=== PATIENT | female | born 1975 | race Caucasian/White ===

== ENCOUNTER 2023-05-27 19:18 | Emergency (ER) | payer BC, SELFPAY ==
[2023-05-27 19:19] VITALS: BMI 28.4
[2023-05-27 19:20] VITALS: BP 149/113
--- NOTE | 2023-05-27 19:53 | ED.GENMED ---
History of Present Illness
General
Chief Complaint: Musculo-Skeletal Complaint
Time Seen by Provider: 05/27/23 19:41
Travel History
Have you had any contact with someone who has COVID-19?: No
Do you have any symptoms of coronavirus? Fever > 100 degrees, chills, cough, shortness of breath, sore throat, loss of taste or smell, muscle aches, or headache?: No
History of Present Illness
History of Present Illness:
HPI: About an hour ago, the patient was picking up something heavy and felt a pop. She does not have much pain but was concerned of hardware in her back that was placed a few years ago related to scoliosis. She has no back pain 'red flags'.
EXAM:
GENERAL: Well appearing in no distress
HEENT: Moist oral mucosa
BACK: There is no significant midline tenderness and there is surgical scar noted in the midline of the T and L-spine
NEUROLOGIC: Excellent strength all extremities, no coordination deficits
PSYCHIATRIC: Appropriate mental status, normal insight and judgement
EXTREMITIES: Nontender, no edema, moves all extremities equally
SKIN: No rash, no lesions
TIME OF INITIAL ENCOUNTER: 7:50 PM
NUMBER AND COMPLEXITY OF PROBLEMS ADDRESSED AT THE ENCOUNTER
� Chronic conditions affecting care: Hardware related to scoliosis
� Acute Exacerbation and/or Progression of Chronic Illness: This is an acute problem
� Differential Diagnosis includes: Hardware malfunction, acute fracture unlikely, herniated disc
AMOUNT AND/OR COMPLEXITY OF DATA TO BE REVIEWED AND ANALYZED
� I performed an independent evaluation of and my interpretation is:
EKG:
CT:
X-rays: Hardware noted with no acute abnormality
Laboratory Studies:
Other:
� Review of other/old records: I reviewed records�patient had exam under anesthesia of the anal region in 2022
� Clinical information was obtained by an independent historian: Spoke with daughter at bedside
� Prescriptions/Medications Considered but not given:
� Further testing considered but not performed:
RISK OF COMPLICATIONS AND/OR MORBIDITY OR MORTALITY OF PATIENT MANAGEMENT
� Social determinants of health affecting care: Lives at home
� Discussion with other providers:
� Escalation of care including admission/observation vs risk of discharge considered: Patient declines analgesia. She is well-appearing. She is concerned of the hardware�will obtain plain film imaging. She has no back pain red
flags. I reassessed patient at 10:10 PM�there have been no further issues.
Past History
Past History
ED Past Medical History: HTN
ED Past Surgical History: Orthopedic
Social History
Tobacco: Non-smoker
Alcohol: Occasional
Drug: None
Phy Exam
Physical Exam
Physical Exam:
See HPI
Course
Orders/Labs/Results
Orders:
Orders
05/27/23 19:52
CR Lumbar Spine Comp Min 4 Vw* Urgent
Comment:
Reason For Exam: felt pop has hardware
CR Thoracic Spine 3 Views Urgent
Reason For Exam: felt pop has hardware
Vital Signs
Initial and Last Documented VS:
Initial Vital Signs
Temp Pulse Resp BP Pulse Ox
97.4 F 105 19 149/113 100
05/27/23 19:20 05/27/23 19:20 05/27/23 19:20 05/27/23 19:20 05/27/23 19:20
Last Documented Vital Signs
Temp Pulse Resp BP Pulse Ox
97.4 F 105 19 149/113 100
05/27/23 19:20 05/27/23 19:20 05/27/23 19:20 05/27/23 19:20 05/27/23 19:20
*Critical Care Note
Total Time (30-74mins, 75-104mins- exclusive of procedures): Not Applicable
ED Attending Note
-
Portions of this chart may have been created with voice recognition software.� Occasional wrong word or��sound alike� substitutions may have occurred due to the inherent limitations of voice recognition software.
Discharge Plan
Departure
Prescriptions:
No Action
lisinopril 20 mg Tablet
20 mg PO DAILY
docusate sodium [Colace] 100 mg Capsule
100 mg PO DAILY
cholecalciferol (vitamin D3) [Vitamin D3] 50 mcg (2,000 unit) Tablet
50 mcg PO DAILY
Lidocaine/Nifedipine
1 dose topical PRN PRN (Reason: pain)
oxycodone-acetaminophen 2.5-300 mg Tablet
1 - 2 tab PO Q6H PRN (Reason: pain)
Referrals:
Eden Isabel MD [Family Provider] -
Interventions
Interventions:
*Risk Screen - Suicide Last Done: 05/27/23 19:20
*General Assessment Last Done: 05/27/23 19:20
*Neglect/Abuse Screening Last Done: 05/27/23 19:20
ED- Fall Risk Assessment Last Done: 05/27/23 19:47
*ED COVID-19 Vaccine History Last Done: 05/27/23 19:20
ED-Musculoskeletal Assessment Last Done: 05/27/23 19:46
Discharge Date and Time
Print Language: CHADIAN
== END 2023-05-27 22:26 | disposition home or self-care (01) ==
LOC: EMR 19:18
PROVIDERS: EMERGENCY PHYSICIAN Emergency Medicine; FAMILY PHYSICIAN Internal Medicine
DX: M54.9 Dorsalgia, unspecified (principal); I10 Essential (primary) hypertension
CPT/HCPCS: 99283; 72072; 72110

== ENCOUNTER → 2024-02-09 06:21 | Day surgery (SDC) | payer BC, SELFPAY | LOC: GI 06:21 | PROVIDERS: ATTENDING PHYSICIAN Surgery | DX: Z12.11 Encounter for screening for malignant neoplasm of colon (principal); D12.0 Benign neoplasm of cecum; D12.2 Benign neoplasm of ascending colon; K63.5 Polyp of colon; K56.2 Volvulus; R19.5 Other fecal abnormalities | CPT/HCPCS: 45385; 45380; 88305 ==

== ENCOUNTER → 2024-04-28 09:18 | Outpatient (REF) | payer BC, SELFPAY | LOC: WDC 09:18 | PROVIDERS: ATTENDING PHYSICIAN Obstetrics & Gynecology; FAMILY PHYSICIAN Internal Medicine | DX: R92.8 Other abnormal and inconclusive findings on diagnostic imaging of breast (principal) | CPT/HCPCS: 76642; 77061; 77065 ==